=== PATIENT | female | born 1980 | race Two or more races ===

== ENCOUNTER 2021-10-21 13:06 | Emergency (ER) | payer MEDICAID, OTHER ==
[~2021-10-21] VITALS: Ht 165.1 cm; Wt 73.5 kg
[2021-10-21 15:45] LABS: Urine Bacteria NONE SEEN /hpf (None Seen); Urine Blood 2+ /uL (Negative); Urine Mucus FEW (None Seen); Urine Specific Gravity 1.025 (1.001-1.035); Urine WBC 6 /hpf (0 - 5)
[2021-10-21 17:32] VITALS: BP 114/61
== END 2021-10-21 17:51 | disposition home or self-care (01) ==
LOC: EDBD 13:06 → ER 13:06
DX: U07.1 COVID-19 (principal); J12.82 Pneumonia due to coronavirus disease 2019; Z88.1 Allergy status to other antibiotic agents
CPT/HCPCS: 71045; 81001